=== PATIENT | female | born 1995 | race Caucasian/White ===

== ENCOUNTER → 2018-12-07 | Outpatient (CLI) | payer OTHER ==
[2018-12-07 17:45] LABS: BASO % 0.3 % (0.0-1.0); EOS # 0.1 10^3/uL (0.0-0.50); EOS % 1.1 % (0.0-3.0); HEMATOCRIT 35.2 % (36.0-47.0); HEMOGLOBIN 11.9 g/dl (12.0-15.5); LYMPH # 1.7 10^3/uL (1.5-6.5); LYMPH % 14.2 % (24.0-44.0); MEAN CORPUSCULAR HEMOGLOBIN 31.1 pg (27.0-33.0); MEAN CORPUSCULAR HGB CONC 33.8 g/dl (32.0-36.5); MEAN CORPUSCULAR VOLUME 91.9 fl (80.0-96.0); MONO # 0.6 10^3/uL (0.0-0.8); MONO % 4.9 % (0.0-5.0); NEUTROPHILS # 9.4 10^3/uL (1.8-7.7); NEUTROPHILS % 78.7 % (36.0-66.0); PLATELET COUNT, AUTOMATED 274 10^3/uL (150-450); RED BLOOD COUNT 3.83 10^6/uL (4.00-5.40); WHITE BLOOD COUNT 11.9 10^3/uL (4.0-10.0)
[2018-12-07 20:03] LABS: CHLAMYDIA DNA AMPLIFICATION NEGATIVE (NEGATIVE); GC DNA AMPLIFICATION NEGATIVE (NEGATIVE)
--- NOTE | 2018-12-08 03:06 | REP ---
Clinical: Anatomical evaluation. Comparison: None . Findings: Examination demonstrates a single live intrauterine in cephalic presentation. motion is identified by technologist. Placenta is noted anterior and grade zero without evidence for placenta previa or abruption. Amniotic fluid volume is normal. Cervix measures 4.1 cm in length and appears closed. No evidence for nuchal cord. Gestational age by LMP 21 weeks 5-day with JOSE J 04/14/2019 . Gestational age by current measurements 21 weeks 6 days with JOSE J 04/13/2019 . FHR equals 163 beats per minute. BPD 4.8 cm 20 weeks 3 days HC 19.3 cm 21 weeks 4 days AC 17.8 cm 22 weeks 5 days FL 3.8 cm 22 weeks 2 days HL 3.6 cm 22 weeks 3-day HC/AC ratio 1.08 Estimated weight 490 grams ( 65th percentile). Anatomical assessment demonstrates normal structures including cranium, choroid plexus, cavum, cerebellum/posterior fossa, facial features, lungs, four-chamber heart/ventricular outflow tracts, diaphragm, stomach, cord insertion/three-vessel cord, kidneys/bladder, and extremities. Impression: Single live intrauterine in cephalic presentation demonstrating appropriate interval growth. Limited evaluation of the spine. Remainder of the anatomical assessment is complete and normal. Electronically Signed by Alfonso Chong MD 12/08/2018 02:56 A
[2018-12-08 10:11] LABS: HEPATITIS C VIRUS ABY INDEX < 0.0 INDEX (<0.8); HIV 1&2 SCREEN CENTAUR NEGATIVE (NEGATIVE); RUBELLA IgG QUALITATIVE IMMUNE (IMMUNE)
== END ==
LOC: M RAD 15:34
PROVIDERS: ATTEND Advanced Practice Midwife
DX: Z36.89 Encounter for other specified antenatal screening (principal); Z3A.21 21 weeks gestation of pregnancy

== ENCOUNTER → 2018-12-21 | Outpatient (CLI) | payer OTHER ==
--- NOTE | 2018-12-21 14:51 | REP ---
OB ULTRASOUND: Real-time sonographic evaluation of the gravid uterus is performed. There is a single living intrauterine gestation with estimated gestational age 23 weeks 5 days with EDC 04/14/2019. Today's measurements indicate appropriate growth. Biometry and Growth: BPD 56 mm = 23 weeks 1 day, 36th percentile HC 216 mm = 23 weeks 5 days, 50th percentile AC 192 mm = 24 weeks 0 days, 55th percentile FL 42 mm = 23 weeks 5 days, 50th percentile HC/AC ratio 1.13 within normal range. Estimated weight 628 grams 47th percentile. SEEN/GROSSLY UNREMARKABLE Lateral ventricles Yes Posterior fossa Yes Upper lip Yes Four-chamber heart Yes LVOT Yes RVOT No Stomach Yes Cord insertion Yes Three vessel cord Yes Kidneys Yes Bladder Yes Spine Yes Cervical length: Closed and measures 4.3 cm in length. heart rate: 140 beats per minute. position: Transverse with head towards the maternal left side. Placenta: Placenta anterior and grade 1 with no previa or abruption. Amniotic fluid: Within normal limits. Electronically Signed by Scot Lim MD 12/21/2018 04:42 P
== END ==
LOC: M RAD 12:36
PROVIDERS: ATTEND Advanced Practice Midwife
DX: Z34.82 Encounter for supervision of other normal pregnancy, second trimester (principal); Z3A.23 23 weeks gestation of pregnancy

== ENCOUNTER → 2019-01-10 | Outpatient (CLI) | payer OTHER ==
[2019-01-10 18:47] LABS: FREE T4 0.75 NG/DL (0.76-1.46); TOTAL 25(OH) VITAMIN D 15.1 NG/ML (30.0-100.0)
[2019-01-10 19:21] LABS: BASO % 0.4 % (0.0-1.0); EOS # 0.1 10^3/uL (0.0-0.50); EOS % 0.7 % (0.0-3.0); HEMATOCRIT 33.7 % (36.0-47.0); HEMOGLOBIN 11.3 g/dl (12.0-15.5); LYMPH # 1.5 10^3/uL (1.5-6.5); LYMPH % 15.3 % (24.0-44.0); MEAN CORPUSCULAR HEMOGLOBIN 32.1 pg (27.0-33.0); MEAN CORPUSCULAR HGB CONC 33.5 g/dl (32.0-36.5); MEAN CORPUSCULAR VOLUME 95.7 fl (80.0-96.0); MONO # 0.4 10^3/uL (0.0-0.8); MONO % 4.4 % (0.0-5.0); NEUTROPHILS # 7.7 10^3/uL (1.8-7.7); NEUTROPHILS % 78.4 % (36.0-66.0); PLATELET COUNT, AUTOMATED 301 10^3/uL (150-450); RED BLOOD COUNT 3.52 10^6/uL (4.00-5.40); WHITE BLOOD COUNT 9.9 10^3/uL (4.0-10.0)
== END ==
LOC: M SMT 10:40
PROVIDERS: ATTEND Advanced Practice Midwife
DX: Z34.82 Encounter for supervision of other normal pregnancy, second trimester (principal); F41.9 Anxiety disorder, unspecified; Z3A.00 Weeks of gestation of pregnancy not specified

== ENCOUNTER 2019-02-23 14:44 | Emergency (ER) | payer OTHER ==
[~2019-02-23] VITALS: Ht 157.5 cm; Wt 76.8 kg
[2019-02-23 15:51] LABS: HEMATOCRIT 30.4 % (36.0-47.0); HEMOGLOBIN 10.1 g/dl (12.0-15.5); MEAN CORPUSCULAR HEMOGLOBIN 29.8 pg (27.0-33.0); MEAN CORPUSCULAR HGB CONC 33.2 g/dl (32.0-36.5); MEAN CORPUSCULAR VOLUME 89.7 fl (80.0-96.0); PLATELET COUNT, AUTOMATED 269 10^3/uL (150-450); RED BLOOD COUNT 3.39 10^6/uL (4.00-5.40); WHITE BLOOD COUNT 10.2 10^3/uL (4.0-10.0)
[2019-02-23 16:15] LABS: ALBUMIN 2.7 GM/DL (3.2-5.2); ALT/SGPT 15 U/L (12-78); BILIRUBIN,TOTAL 0.9 MG/DL (0.2-1.0); BLOOD UREA NITROGEN 11 MG/DL (7-18); CALCIUM LEVEL 8.5 MG/DL (8.5-10.1); CARBON DIOXIDE LEVEL 26 MEQ/L (21-32); CHLORIDE LEVEL 105 MEQ/L (98-107); CREATININE FOR GFR 0.58 MG/DL (0.55-1.30); GLOMERULAR FILTRATION RATE > 60.0 (>60); GLUCOSE, FASTING 92 MG/DL (70-100); POTASSIUM SERUM 4.1 MEQ/L (3.5-5.1); SODIUM LEVEL 137 MEQ/L (136-145); TOTAL PROTEIN 6.1 GM/DL (6.4-8.2)
[2019-02-23] MEDS ORDERED: NS 1,000 ML IV ONE ×2 (17:00→18:45)
--- NOTE | 2019-02-23 18:21 | REP ---
HISTORY: Dyspnea. FINDINGS: The superior mediastinal structures are midline. The cardiac silhouette is unremarkable in size, shape and position. The diaphragmatic surfaces of the lungs are regular and the costophrenic angles are clear. The pulmonary santos are clear. The imaged osseous structures are intact. IMPRESSION: There is no acute cardiopulmonary disease. Electronically Signed by Winston Call DO 02/24/2019 10:52 A
[2019-02-23 20:46] VITALS: BP 123/76
== END 2019-02-23 21:22 | disposition admitted as inpatient to this hospital (09) ==
LOC: M ED 14:44
DX: O99.413 Diseases of the circulatory system complicating pregnancy, third trimester (principal); I95.1 Orthostatic hypotension; Z3A.33 33 weeks gestation of pregnancy

== ENCOUNTER 2019-02-23 21:32 | Outpatient (CLI) | payer OTHER ==
[~2019-02-23] VITALS: Ht 157.5 cm; Wt 80.3 kg
[2019-02-23 21:59] VITALS: BP 111/72
--- NOTE | 2019-02-23 22:51 | IPN ---
DATE: 02/23/2019 Leonora is a 23-year-old 2, para 1-0-0-1, 32-6/7 weeks gestation, estimated date of delivery (EDC) of 04/14/2019 based on last menstrual period and confirmed by first trimester ultrasound. She presents to labor and delivery today following evaluation in ER for reports of shortness of breath, dizziness, heart palpitations and chest pain. She has been cleared by the ER and is here for evaluation. Upon arrival to labor and delivery she reports that her dizziness has subsided. She does feel a sense of chest pressure. She currently denies shortness of breath and she denies vaginal bleeding, leakage of fluid and contractions. The fetus has been active. care was initiated at [facility] in the second trimester. course complicated by GBS in her urine, depression, and vitamin D deficiency OBSTETRICAL HISTORY July 2017. 40-2/7 weeks, 7 pounds 13 ounces male spontaneous vaginal delivery. OBSTETRIC LABS A+, antibody screen negative, rubella immune, VDRL nonreactive. Urine culture positive for group B Streptococcus. Hepatitis B surface antigen negative, HIV negative. Hep C antibody nonreactive. Gonorrhea, chlamydia negative. Genetic testing low probability for aneuploidy and male fetus. Gestational diabetic screening normal at 101. CBC with hemoglobin 11.3. TSH and free T4 normal. Urine culture followup after treatment with no growth. PAST MEDICAL HISTORY: depression. SURGERIES: None. FAMILY HISTORY: Diabetes. SOCIAL HISTORY The patient is single, however, the father of the baby is at bedside, is supportive as well as her older child. ALLERGIES: No known drug allergies. CURRENT MEDICATIONS vitamin. She denies any history of sexually transmitted infections and abuse; physical, sexual or emotional. She is a nonsmoker. Denies alcohol and drug use. OBJECTIVE Temperature 98.7, pulse 81, respirations 18, BP is 111/72. She is alert and oriented times three. She is in no apparent distress. Her skin is pink, warm and dry. She is smiling and talkative. heart rate is 135, moderate variability, positive accelerations, no decelerations. There is no pattern of contractions. ASSESSMENT Interim at 32-6/7 weeks. heart rate is category one. Normal discomforts of . PLAN The patient will be given a snack prior to discharge. She has not eaten in approximately 11 hours. She has been IV hydrated in the ED. I did review palliative measures for the normal discomforts of , increased hydration, frequent snacks with high protein choces. I did review signs and symptoms of labor, movement counts and danger signs to report. I did review access to care. The patient is to keep her next scheduled appointments. All of her questions have been answered.
[2019-02-23] MEDS ORDERED: FAMOTIDINE 20 MG TAB PO ONE (23:00)
== END 2019-02-23 22:30 | disposition home or self-care (01) ==
LOC: M LDO 21:32
PROVIDERS: ATTEND Advanced Practice Midwife
DX: O26.893 Other specified pregnancy related conditions, third trimester (principal); Z3A.32 32 weeks gestation of pregnancy
CPT/HCPCS: 59025; G0378; G0463

== ENCOUNTER → 2019-03-22 | Outpatient (CLI) | payer OTHER ==
[2019-03-22 20:18] LABS: ALBUMIN 2.9 GM/DL (3.2-5.2); BILIRUBIN,DIRECT 0.2 MG/DL (0.0-0.2); BILIRUBIN,TOTAL 0.9 MG/DL (0.2-1.0); TOTAL PROTEIN 6.5 GM/DL (6.4-8.2)
== END ==
LOC: M LRY 08:00
PROVIDERS: ATTEND Advanced Practice Midwife
DX: O26.893 Other specified pregnancy related conditions, third trimester (principal)

== ENCOUNTER 2019-04-03 22:59 | Outpatient (CLI) | payer OTHER ==
[~2019-04-03] VITALS: Ht 157.5 cm; Wt 82.0 kg
[2019-04-03 23:23] VITALS: BP 124/82
[2019-04-04] MEDS ORDERED: PEPC1TAB5 PO (17:26)
[2019-04-04] MEDS ORDERED: PRENTAB9 PO ×2 (17:26)
== END 2019-04-04 03:50 | disposition home or self-care (01) ==
LOC: M LDO 22:59
PROVIDERS: ATTEND Obstetrics & Gynecology
DX: O26.893 Other specified pregnancy related conditions, third trimester (principal); O47.03 False labor before 37 completed weeks of gestation, third trimester; Z3A.34 34 weeks gestation of pregnancy
CPT/HCPCS: 59025; G0378; G0463

== ENCOUNTER 2019-04-04 17:04 | Inpatient (IN) | payer OTHER ==
[~2019-04-04] VITALS: Ht 157.5 cm; Wt 82.0 kg
[2019-04-04] VITALS (25 sets, daily range): BP systolic 110–185; BP diastolic 59–91
[2019-04-04] MEDS ORDERED: PRENTAB9 PO ×2 (17:26)
[2019-04-04] MEDS ORDERED: PEPC1TAB5 PO (17:26)
[2019-04-04] MEDS ORDERED: PENICILLIN G POTASSIUM IV 5 MU in D5W MINI-BAG PLUS 100 ML IV STA (17:36)
[2019-04-04] MEDS ORDERED: LACTATED RINGER'S 1000 ML IV STA (17:36)
[2019-04-04] MEDS ORDERED: LR 1,000 ML IV SCH (17:36)
--- NOTE | 2019-04-04 17:57 | HPEPDOC ---
Obstetrical History & Physical General Date of Admission Apr 04, 2019 at 17:34 Primary Care Physician: IRENE TARANGO CNM History of Present Illness Patient is a 23-year-old female who is a at 38.4 weeks gestation with an JOSE J of 04/14/19 based off of her first trimester ultrasound. She in initiated care in her first trimester in [place] and transferred care to [facility] in her second trimester. Her has been complicated by anxiety, a history of depression and GBS bacteriuria. She presents to L&D with complaints of painful contractions. She had an appointment in the office at 0400 and was found to be 2-3 cm and 100% effaced. She reports bloody show and active movement. The patient denies leaking of fluid. Information Provided By: Patient Age: 23 : 2 Term: 1 Pre-term: 0 Abortions: 0 Livin Care Care: Good Care Dating Final EDC: Apr 14, 2019 Final EDC by: 1st trimester (US) EGA at Admission: 38.4 Antepartum Course Height (inches): 62 Pre- weight (lbs.): 145 Admission Weight (lbs.): 180 Change in Weight (lbs.): 35 Past Medical History Past Obstetrical History : Past Obstetrical History: Primgravida Gestation: 40.2 Type of Delivery: Spontaneous Vaginal Del. (July 2017) Sex of : Male (weighting 7 lbs 13 o.) Complications: No Past Medical History Medical History Anxiety depression Surgical History: Denies/None Family History Significant Family History: Diabetes Social History Marital Status: Family situation: Spouse/partner home Psychosocial History: Anxiety, Depression * Smoker: non-smoker Alcohol: Denies Drugs: denies Abuse Violence Screening Have you been hit/kicked/slapp: No Have you been sexually assault: No Imunizations Tdap status: declined Influenza Status: declined Allergies Coded Allergies: No Known Allergies (Unverified , 02/23/19) Medications Scheduled Famotidine (Pepcid) 20 Mg Tablet, 20 MG PO DAILY No.137/Iron/Folic Acd ( Vitamin Tablet) 1 Each Tablet, 1 TAB PO DAILY Physical Examination Physical Examination GENERAL: Alert and oriented times three. BREAST: . ABDOMEN: Gravid and non-tender to touch. FETUS: Is vertex (VTX) by sterile vaginal examination (SVE), fetus is vertex (VTX) by Kendrick. HEART RATE: Regular rate and rhythm. LUNGS: Clear to auscultation (CTA). EXTREMITIES: No edema. No clonus. Deep tendon reflexes (DTRs) + 2. Vital Signs/I&O Vital Signs Date Time Temp Pulse Resp B/P (MAP) Pulse Ox O2 Delivery O2 Flow Rate FiO2 04/04/19 17:23 99.7 85 20 134/91 (105) Pertinent Laboratoy Data Blood Type: A+ RBC Antibody Screen: Negative HIV: Negative Hepatitis B: Negative Hepatitis C: Negative Rapid Plasma Reagin: Nonreactive Rubella: Immune Chlamydia/Gonorrhea: Negative Group B Streptococcus: Positive Glucose Tolerance Test: 101 Diag/Inter Therapy NIPT low risk with normal male Vaginal Examination Dilation: 3 cm (3-4 cm) Effacement: 100% Station: -1 Presentation: Cephalic presentation Position: Vertex (occiput) Assessment Heart Rate (FHR): 130 Variability: Moderate Accelerations: Positive Decelerations: None Tocometer Contractions: Yes Frequency: regular, other (2-4 minutes) Assessment/Plan Assessment IUP at 38.4 weeks gestation active labor at term GBS positive Category I FHR tracing. Plan Admit to L&D. OOB ad melonie. Diet: clears. Group B Streptococcus (GBS) positive. Start PCN G IV antibiotics now. Labs and intravenous (IV) per unit protocol. Lactated Ringers (LR): Bolus 800 mL, then at 125 mL/hr. Anesthesia consult per patients request. Anticipate cervical change. IRENE TARANGO CNM Apr 04, 2019 17:57
[2019-04-04 18:30] LABS: HEMATOCRIT 32.9 % (36.0-47.0); HEMOGLOBIN 10.8 g/dl (12.0-15.5); MEAN CORPUSCULAR HEMOGLOBIN 28.4 pg (27.0-33.0); MEAN CORPUSCULAR HGB CONC 32.8 g/dl (32.0-36.5); MEAN CORPUSCULAR VOLUME 86.6 fl (80.0-96.0); PLATELET COUNT, AUTOMATED 265 10^3/uL (150-450); WHITE BLOOD COUNT 11.2 10^3/uL (4.0-10.0)
[2019-04-04] MEDS ORDERED: FENTANYL 2MCG/ML ROPIVACAINE 0.2% IN 0.9% NACL 100ML IVBAG As Ordered ONE (18:36)
[2019-04-04 18:47] LABS: ALT/SGPT 12 U/L (12-78); BILIRUBIN,TOTAL 0.9 MG/DL (0.2-1.0); CREATININE FOR GFR 0.56 MG/DL (0.55-1.30); GLOMERULAR FILTRATION RATE > 60.0 (>60); LDH LACTATE DEHYDROGENASE 155 U/L (84-246); URIC ACID 3.9 MG/DL (2.6-6.0)
[2019-04-04] MEDS ORDERED: LACTATED RINGER'S 1000 ML IV PRN (19:45)
[2019-04-04] MEDS ORDERED: ePHEDrine SULFATE 25 MG/5 ML(5MG/ML) SYRINGE IV PRN (19:45)
[2019-04-04] MEDS ORDERED: FENTANYL/ROPIVACAINE/NACL BAG 100 ML EPIDURAL SCH (19:45)
[2019-04-04] MEDS ORDERED: NALOXONE INJ 0.4 MG/1 ML VIAL (J2310) IV PRN (19:45)
[2019-04-04] MEDS ORDERED: ONDANSETRON 4MG/2ML VIAL (J2405) IV PRN (19:45)
[2019-04-04] MEDS ORDERED: REFRIGERATOR IV KEYS XX PRN (19:45)
[2019-04-04] MEDS ORDERED: EPIDURAL COMMENT XX SCH (19:45)
[2019-04-04] MEDS ORDERED: diphenhydrAMINE INJ 50MG/ML VIAL (J1200) IV PRN (19:45)
[2019-04-04] MEDS ORDERED: EPIDURAL/PCA KEYS XX PRN (19:45)
[2019-04-04] MEDS ORDERED: OXYTOCIN 30 UNITS IN 0.9% NaCl 500ML IV BAG (J2590) As Ordered ONE (19:55)
[2019-04-04] MEDS ORDERED: OXYTOCIN DRIP 30 UNITS in IV 1 EA IV SCH (21:50)
[2019-04-04] MEDS ORDERED: ANUSOL HC CREAM 30GM TOP PRN (22:00)
[2019-04-04] MEDS ORDERED: DOCUSATE SODIUM 100 MG CAP PO PRN (22:00)
[2019-04-04] MEDS ORDERED: IBUPROFEN 600 MG TAB PO PRN (22:00)
[2019-04-04] MEDS ORDERED: ACETAMINOPHEN TAB 650MG DOSE (2X325MG) PO PRN (22:00)
[2019-04-04] MEDS ORDERED: METHYLERGONOVINE MALEATE 0.2 MG TAB PO PRN (22:00)
[2019-04-04] MEDS ORDERED: PENICILLIN G POTASSIUM IV 2.5 MU in IV 1 EA IV SCH (22:00)
[2019-04-04] MEDS ORDERED: DIBUCAINE 1% OINTMENT 30GM TOP PRN (22:00)
[2019-04-04] MEDS ORDERED: RHOGAM 300 MCG (1500 IU) INJ (J2790) IM SCH (22:00)
--- NOTE | 2019-04-04 22:01 | DNPDOC ---
[facility] Delivery Note Delivery Note DATE OF DELIVERY: 04/04/2019 at 2016 PREDELIVERY DIAGNOSIS: 38-4/7 weeks' gestation and labor. POST DELIVERY DIAGNOSIS: Delivered. PROCEDURE: Spontaneous vaginal delivery. DOCUMENT SPECIALIST: Irene Parr CNM, KYE ANESTHESIA: epidural. ESTIMATED BLOOD LOSS: 200 mL. FINDINGS: 7 pounds 11 ounces, 3490 grams, male infant, Score 7/10, nuchal cord times 2. DELIVERY SUMMARY: Patient is a 23-year-old female who is now a at 38.4 w eeks gestation who presented to L&D in active labor. She received an epidural for pain management. The patient spontaneously ruptured to a large amount of clear fluid at 1953 and progressed to fully dilated at 2005. The patient pushed to a living male in the FARIHA position with restitution to ROT. A nuchal times tow was noted. The anterior shoulder delivered with ease and the corpus immediately followed. The baby was placed on the maternal abdomen active and crying. The cord was clamped after pulsation ceased and cut by the father of the baby. A 3- vessel cord was noted. The placenta delivered spontaneously and intact at 2022. Uterine hemostasis was achieved via rapid infusion of IV Pitocin and fundal massage. The perineum, vagina, and cervix was inspected and found to be intact. The mom plans to formula feed her . They are naming him Monico. Both mom and baby are in stable condition. All counts of instruments and sponges are correct. IRENE PARR CNM Apr 04, 2019 22:00
[2019-04-04] MEDS: IBUPROFEN 800 MG TAB PO PRN (23:35)
[2019-04-05 01:00] VITALS: BP 107/58
[2019-04-05 05:52] VITALS: BP 111/68
--- NOTE | 2019-04-05 06:37 | IPNPDOC ---
Progress Note Date of Service: Apr 05, 2019 Day#: 1 Progress Note SUBJECT: She has been ambulating, voiding spontaneously without issue and tolerating regular diet. OBJECTIVE: VITAL SIGNS: Within normal limits, afebrile. Alert and oriented times three. Breath sounds clear to auscultation. Heart rate: Regular rate and rhythm, no murmurs, rubs or gallops. Abdomen: Fundus firm at U. Soft, NTTP. Minimal lochia. Lower extremities: generalized edema. No pitting. ASSESSMENT: Day 1 PLAN: 1. Continue supportive nursing care. 2. Anticipate discharge to home tomorrow. VS, I&O, 24H, Fishbone Vital Signs/I&O Vital Signs Date Time Temp Pulse Resp B/P (MAP) Pulse Ox O2 Delivery O2 Flow Rate FiO2 04/05/19 05:52 97.6 80 18 111/68 (82) 97 I&O- Last 24 Hours up to 6 AM 04/05/19 06:00 Output Total 800 ml Balance -800 ml Laboratory Data 24H LABS Laboratory Tests 2 04/04/19 17:41: Serology Scanned Report Hepatitis B Testing 04/04/19 17:51: Nucleated Red Blood Cells % (auto) 0.0, Glomerular Filtration Rate > 60.0, Creatinine 0.56, Aspartate Amino Transf (AST/SGOT) 10, Alanine Aminotransferase (ALT/SGPT) 12, Lactate Dehydrogenase 155, Total Bilirubin 0.9, Uric Acid 3.9 CBC/BMP Laboratory Tests 04/04/19 17:51 Red Blood Count 3.80 L, Mean Corpuscular Volume 86.6, Mean Corpuscular Hemoglobin 28.4, Mean Corpuscular Hemoglobin Concent 32.8, Red Cell Distribution Width 13.5, Aspartate Amino Transf (AST/SGOT) 10, Alanine Aminotransferase (ALT/SGPT) 12, Lactate Dehydrogenase 155, Total Bilirubin 0.9, Uric Acid 3.9 IRENE TARANGO CNM Apr 05, 2019 06:37
[2019-04-05] MEDS: PRENATAL VITAMINS CHEWABLE TABLET PO SCH (09:40)
[2019-04-05] MEDS: IBUPROFEN 800 MG TAB PO PRN ×2 (09:41→16:43)
[2019-04-05] MEDS: MEASLES,MUMPS,RUBELLA VACCINE INJ (MMR-II) (90707) SC SCH ×2 (11:54→16:40)
[2019-04-05] MEDS ORDERED: SLF 3 ML SYR IV PRN (13:15)
[2019-04-05] MEDS ORDERED: SLF 3 ML SYR IV SCH (14:00)
[2019-04-05 18:00] VITALS: BP 97/61
[2019-04-05] MEDS: ACETAMINOPHEN 500 MG TAB PO PRN (23:15)
[2019-04-06 05:45] VITALS: BP 114/68
[2019-04-06] MEDS ORDERED: IBUP80TA PO (07:19)
[2019-04-06] MEDS: ACETAMINOPHEN 500 MG TAB PO PRN (07:51)
[2019-04-06] MEDS: PRENATAL VITAMINS CHEWABLE TABLET PO SCH (07:51)
== END 2019-04-06 12:10 | disposition home or self-care (01) | DRG 807 ==
LOC: M LDO 17:04 → M LDI 17:34 → M OBS 04-05 00:01
PROVIDERS: ADMIT Advanced Practice Midwife; ATTEND Advanced Practice Midwife
PROC: 10E0XZZ Delivery of Products of Conception, External Approach (ICD-10-PCS; principal; 2019-04-04)
DX: O99.824 Streptococcus B carrier state complicating childbirth (principal); Z37.0 Single live birth; Z3A.38 38 weeks gestation of pregnancy; O69.81X0 Labor and delivery complicated by cord around neck, without compression, not applicable or unspecified

== ENCOUNTER → 2021-05-24 | Outpatient (CLI) | payer OTHER ==
[~2021-05-24] MED LIST: IBUP80TA PO; ONDA4TAB6 PO; PEPC1TAB5 PO; PRENTAB9 PO
[2021-05-24 13:20] LABS: BASO % 0.2 % (0.0-1.0); EOS # 0.1 10^3/uL (0.0-0.5); EOS % 0.6 % (0.0-3.0); HEMATOCRIT 35.4 % (36.0-47.0); LYMPH # 1.6 10^3/uL (1.5-5.0); LYMPH % 18.8 % (24.0-44.0); MEAN CORPUSCULAR HEMOGLOBIN 30.8 pg (27.0-33.0); MEAN CORPUSCULAR HGB CONC 33.9 g/dl (32.0-36.5); MONO # 0.5 10^3/uL (0.0-0.8); MONO % 5.3 % (2.0-8.0); NEUTROPHILS # 6.3 10^3/uL (1.5-8.5); NEUTROPHILS % 74.6 % (36.0-66.0); PLATELET COUNT, AUTOMATED 301 10^3/uL (150-450); RED BLOOD COUNT 3.89 10^6/uL (4.00-5.40); WHITE BLOOD COUNT 8.5 10^3/uL (4.0-10.0)
[2021-05-24 14:39] LABS: HEPATITIS C VIRUS ABY INDEX 0.1 INDEX (<0.8); HIV 1&2 SCREEN CENTAUR NEGATIVE (NEGATIVE)
[2021-05-24 16:50] LABS: GC DNA AMPLIFICATION NEGATIVE (NEGATIVE)
== END ==
LOC: M PLALAB 10:39
PROVIDERS: ATTEND Advanced Practice Midwife
DX: Z34.81 Encounter for supervision of other normal pregnancy, first trimester (principal); Z3A.00 Weeks of gestation of pregnancy not specified

== ENCOUNTER 2021-06-03 10:00 | Emergency (ER) | payer OTHER ==
[~2021-06-03] VITALS: Ht 157.5 cm; Wt 63.9 kg
[~2021-06-03 10:00] MED LIST changes: -ONDA4TAB6 PO
[2021-06-03 12:53] LABS: BASO % 0.2 % (0.0-1.0); HEMOGLOBIN 12.9 g/dl (12.0-15.5); LYMPH # 0.4 10^3/uL (1.5-5.0); LYMPH % 2.7 % (24.0-44.0); MEAN CORPUSCULAR HEMOGLOBIN 31.5 pg (27.0-33.0); MEAN CORPUSCULAR HGB CONC 34.9 g/dl (32.0-36.5); MEAN CORPUSCULAR VOLUME 90.2 fl (80.0-96.0); MONO # 0.3 10^3/uL (0.0-0.8); MONO % 2.3 % (2.0-8.0); NEUTROPHILS # 12.1 10^3/uL (1.5-8.5); NEUTROPHILS % 94.1 % (36.0-66.0); PLATELET COUNT, AUTOMATED 266 10^3/uL (150-450); WHITE BLOOD COUNT 12.9 10^3/uL (4.0-10.0)
[2021-06-03] MEDS ORDERED: NS 1,000 ML IV ONE (13:05)
[2021-06-03] MEDS ORDERED: ONDANSETRON 4MG/2ML VIAL IV ONE (13:05)
[2021-06-03 13:19] LABS: ALBUMIN 3.4 GM/DL (3.2-5.2); ALT/SGPT 14 U/L (12-78); BILIRUBIN,DIRECT 0.2 MG/DL (0.0-0.2); BILIRUBIN,TOTAL 0.8 MG/DL (0.2-1.0); BLOOD UREA NITROGEN 16 MG/DL (7-18); CALCIUM LEVEL 9.1 MG/DL (8.5-10.1); CARBON DIOXIDE LEVEL 23 MEQ/L (21-32); CHLORIDE LEVEL 106 MEQ/L (98-107); GLOMERULAR FILTRATION RATE > 60.0 (>60); GLUCOSE, FASTING 92 MG/DL (70-100); LIPASE 144 U/L (73-393); POTASSIUM SERUM 3.9 MEQ/L (3.5-5.1); SODIUM LEVEL 137 MEQ/L (136-145)
[2021-06-03 14:13] LABS: RSV AMPLIFICATION NEGATIVE (NEGATIVE)
[2021-06-03] MEDS ORDERED: ONDA4TAB6 PO (15:35)
[2021-06-03 15:48] VITALS: BP 94/51
== END 2021-06-03 15:51 | disposition home or self-care (01) ==
LOC: M ED 10:00
DX: O21.9 Vomiting of pregnancy, unspecified (principal); O44.02 Complete placenta previa NOS or without hemorrhage, second trimester; Z3A.13 13 weeks gestation of pregnancy
CPT/HCPCS: 76815; 76817; 80048; 80076; 81001; 83690; 85025; 87086; 87631; 96361; 96374; 99284; J2405

== ENCOUNTER → 2021-09-12 | Outpatient (CLI) | payer OTHER ==
[~2021-09-12] MED LIST changes: +ONDA4TAB6 PO
[2021-09-12 13:27] LABS: HEMATOCRIT 32.4 % (36.0-47.0); HEMOGLOBIN 10.8 g/dl (12.0-15.5); MEAN CORPUSCULAR HEMOGLOBIN 30.3 pg (27.0-33.0); MEAN CORPUSCULAR HGB CONC 33.3 g/dl (32.0-36.5); PLATELET COUNT, AUTOMATED 274 10^3/uL (150-450); RED BLOOD COUNT 3.56 10^6/uL (4.00-5.40)
== END ==
LOC: M PLALAB 10:51
PROVIDERS: ATTEND Advanced Practice Midwife
DX: Z36.89 Encounter for other specified antenatal screening (principal); Z3A.00 Weeks of gestation of pregnancy not specified

== ENCOUNTER → 2021-09-16 | Outpatient (CLI) | payer OTHER | LOC: M LAB 08:17 | PROVIDERS: ATTEND Advanced Practice Midwife | DX: O99.810 Abnormal glucose complicating pregnancy (principal); Z3A.00 Weeks of gestation of pregnancy not specified ==